=== PATIENT | male | born 1995 | race Caucasian/White ===

== ENCOUNTER 2017-08-05 22:34 | Emergency (ER) | payer OTHER, MEDICAID ==
[2017-08-06] MEDS: ACETAMINOPHEN 500 MG TAB PO (03:02)
[2017-08-06] MEDS: ONDANSETRON (ODT) 4 MG TAB ODT (03:02)
[2017-08-06] MEDS: IBUPROFEN 600 MG TAB PO (03:03)
== END 2017-08-06 04:48 | disposition home or self-care (01) ==
LOC: FTE 22:34
DX: R05 Cough (principal); R50.9 Fever, unspecified; R09.89 Other specified symptoms and signs involving the circulatory and respiratory systems; R51 Headache
CPT/HCPCS: 99284; Z7502